=== PATIENT | male | born 1985 | race Caucasian/White ===

== ENCOUNTER 2019-05-16 18:10 | Emergency (ER) | payer SELFPAY ==
[2019-05-16 18:35] VITALS: BP 119/91
[2019-05-16] MEDS ORDERED: Diphtheria,Pertussis(Acell),Tetanus Vaccine 0.5 ML SDV IM ONE (18:43)
[2019-05-16] MEDS ORDERED: Lidocaine 1% 30 ML SDV INJECT ONE (18:54)
[2019-05-16] MEDS ORDERED: Bacitracin Oint 1 GM U/D Packet TOP ONE (18:54)
--- NOTE | 2019-05-16 19:23 | EDM.PDOC ---
ED HPI GENERAL MEDICAL PROBLEM - General Chief Complaint: Upper Extremity Injury/Pain Stated Complaint: RIGHT HAND TO MIDDLE FINGERS BLEEDING PT. Time Seen by Provider: 05/16/19 19:11 Source of Information: Reports: Patient History Limitations: Reports: No Limitations - History of Present Illness INITIAL COMMENTS - FREE TEXT/NARRATIVE: Tripped fell landed with hand striking floor grinder, laceration 3rd finger and deep abrasion 4th finger tip. No other injuries. Right Hand Pain Score (Numeric/FACES): 2 - Related Data Allergies Allergy/AdvReac Type Severity Reaction Status Date / Time No Known Allergies Allergy Verified 07/01/15 13:51 Home Meds: Home Meds . [No Known Home Meds] 07/01/15 [History] Past Medical History - Past Health History Medical/Surgical History: Denies Medical/Surgical History Social & Family History - Tobacco Use Smoking Status *Q: Never Smoker - Caffeine Use Caffeine Use: Reports: Coffee - Recreational Drug Use Recreational Drug Use: No - Living Situation & Occupation Living situation: Reports: with Family Occupation: Employed Review of Systems - Review of Systems Review Of Systems: ROS reveals no pertinent complaints other than HPI. ED EXAM, GENERAL - Physical Exam Exam: See Below Exam Limited By: No Limitations General Appearance: Alert, Mild Distress Ears: Normal External Exam, Hearing Grossly Normal Nose: Normal Inspection Throat/Mouth: Normal Inspection Head: Atraumatic, Normocephalic Neck: Full Range of Motion Respiratory/Chest: No Respiratory Distress Cardiovascular: Regular Rate, Rhythm Extremities: Normal Range of Motion Neurological: Alert, Oriented, Normal Cognition Psychiatric: Normal Affect Skin Exam: Warm, Wound/Incision (laceration right 3rd MIP Transverse, avulsion medial tip3rd finger with partial nail avulsion) ED TRAUMA EXTREMITY PROCEDURES - Laceration/Wound Repair Right Middle Lateral Digit - 3rd (Middle) Lac/Wound Length In cm: 2 Appearance: Superficial, Mildly Contaminated Distal NVT: Neuro & Vascular Intact Anesthetic Type: Local Local Anesthesia - Lidocaine (Xylocaine): 1% Plain Local Anesthetic Volume: 2cc Skin Prep: Chlorhexidine (Hibiciens), Saline Saline Irrigation (cc's): 100 Exploration/Debridement/Repair: Wound Explored, Minimal Debridement Closed With: Sutures Suture Size: 4-0 # of Sutures: 7 Suture Type: Nylon, Interrupted Course - Vital Signs Last Recorded V/S: Last Vital Signs Temp 98.3 F 05/16/19 18:26 Pulse Resp 18 05/16/19 18:26 BP 119/91 H 05/16/19 18:26 Pulse Ox - Orders/Labs/Meds Orders: Active Orders 24 hr Category Date Time Status Vaccines to be Administered [RC] PER UNIT ROUTINE Care 05/16/19 18:44 Active Hand Comp Min 3V Rt [CR] Urgent Exams 05/16/19 18:43 Taken Meds: Medications Discontinued Medications Generic Name Dose Route Start Last Admin Trade Name Marlys PRN Reason Stop Dose Admin Bacitracin 1 dose 05/16/19 18:54 05/16/19 19:21 Bacitracin Oint 1 Gm TOP 05/16/19 18:55 1 dose ONETIME ONE Administration Cephalexin 500 mg 05/16/19 20:07 05/16/19 20:15 Keflex PO 05/16/19 20:08 500 mg ONETIME ONE Administration Diphtheria/Tetanus/Acell Pertussis 0.5 ml 05/16/19 18:43 05/16/19 18:53 Adacel IM 05/16/19 18:44 0.5 ml .ONCE ONE Administration Lidocaine HCl 30 ml 05/16/19 18:54 05/16/19 19:21 Xylocaine-Mpf 1% INJECT 05/16/19 18:55 30 ml ONETIME ONE Administration - Radiology Interpretation Free Text/Narrative:: [facility] Final Radiology Report Call: [phone] assistance Online chat: [email or web address] Name: GREGG KHAN Age: 34Years M Date: 05/16/2019 SSN: -- : [id number] Study: XR HAND COMPLETE MIN OF 3 VIEWS RIGHT Requesting Physician: Keeley Canseco Images: 3 Addl Studies: Provided Clinical History: Contrast: Contrast Medium: Contrast Amount: Contrast Method: Page 1 of 2 EXAM: XR Right Hand EXAM DATE/TIME: 05/16/2019 6:51 PM CLINICAL HISTORY: 34 years old, male; Injury or trauma; Injury history: Hand in floor grinder - 3rd and 4th digits; Initial encounter; Laceration; Right TECHNIQUE: Imaging protocol: XR Right hand. Views: 3 or more views. COMPARISON: No relevant prior studies available. FINDINGS: Bones/joints: The alignment of the joints is anatomic and the joint spaces are maintained. There is no evidence of acute fracture. Soft tissues: There is soft tissue disruption along the medial aspect of the third finger at the level of the middle phalanx. There is no evidence of a radio-opaque foreign body. IMPRESSION: No acute abnormality. Thank you for allowing us to participate in the care of your patient. Dictated and Authenticated by: Andrea Ledbetter MD Departure - Departure Time of Disposition: 20:07 Disposition: Home, Self-Care 01 Condition: Good Clinical Impression: Fall, Laceration of finger, Avulsion, finger tip - Discharge Information *PRESCRIPTION DRUG MONITORING PROGRAM REVIEWED*: Not Applicable *COPY OF PRESCRIPTION DRUG MONITORING REPORT IN PATIENT CRISELDA: Not Applicable Instructions: Laceration Care, Adult, Stitches, Wilma, or Adhesive Wound Closure, [id number] Forms: ED Department Discharge Additional Instructions: keep wound clean and dry dressing change twice daily clean wounds with soap and water antibiotic ointment to finger tip with dressing momin alternate tylenol and ibuprofen every 4 hours as needed for discomfort keep extremity elevated tonight follow up in clinic for recheck or Wednesday, call in am to schedule keflex 500mg one three times daily for one week foolow up if redness, swelling drainage from wounds - My Orders Last 24 Hours: My Active Orders 05/16/19 18:43 Hand Comp Min 3V Rt [CR] Urgent 05/16/19 18:44 Vaccines to be Administered [RC] PER UNIT ROUTINE - Assessment/Plan Last 24 Hours: My Active Orders 05/16/19 18:43 Hand Comp Min 3V Rt [CR] Urgent 05/16/19 18:44 Vaccines to be Administered [RC] PER UNIT ROUTINE
[2019-05-16] MEDS ORDERED: Cephalexin 500 MG Cap PO ONE (20:07)
== END 2019-05-16 20:20 | disposition home or self-care (01) ==
LOC: DL.ED 18:10
DX: S61.212A Laceration without foreign body of right middle finger without damage to nail, initial encounter (principal); W31.9XXA Contact with unspecified machinery, initial encounter
CPT/HCPCS: 12001; 73130; 90471; 90715; 96372; 99282; A9270; J2001; 99283